=== PATIENT | female | born 1960 | race Caucasian/White ===

== ENCOUNTER 2023-12-22 10:06 | Outpatient (CLI) | payer OTHER ==
[~2023-12-22 10:06] MED LIST: ALEVE220 M1 PO
== END 2023-12-22 10:14 | disposition home or self-care (01) ==
LOC: MAMO-SONO 10:06
PROVIDERS: ATTEND Internal Medicine
DX: N60.11 Diffuse cystic mastopathy of right breast (principal); N60.12 Diffuse cystic mastopathy of left breast; Z12.31 Encounter for screening mammogram for malignant neoplasm of breast